=== PATIENT | male | born 1965 | race Hispanic/Latino ===

== ENCOUNTER 2025-02-19 09:33 | Inpatient (IN) | payer BC ==
--- OUTSIDE RECORDS SUMMARY | 2025-02-19 09:36 | XMS REPORT | Clinical Summary ---
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 07/01/2013 Active tadalafil (CIALIS) 5 mg tablet as needed. 02/21/2014 Active selenium 200 mcg cap capsule daily. 03/16/2015 Active amLODIPine (NORVASC) 10 mg tablet Take 10 mg by mouth daily. 11/21/2018 Active CIALIS 20 mg tablet Take 20 mg by mouth as needed. 12 01/25/2019 Active tamsulosin (FLOMAX) 0.4 mg 24 hr capsuleIndicatio ns:Benign prostatic hyperplasia with lower urinary tract symptom TAKE 1 CAPSULE BY MOUTH EVERY DAY FOR 30 DAYS 90 capsule 3 06/03/2020 Active Active Problems Problem Noted Date Diagnosed Date Prostate cancer 08/08/2018 Cancer Staging:Clinical stage from 08/08/2018:Stage I(cT1c, cN0, cM0, PSA: 3.2, Grade Group: 1) - Signed by Aldo Llamas MD on 08/08/2018 Overview (07/16/2020): Mandatory [facility] ICD-10 2020 UPDATE Decreased testosterone level (aka Low testostero ne) 10/16/2012 Overview (07/05/2018): patient was treated intermittently from 0216-9831 with various testosterone replacement preparations including injections more recently. 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 Family History Medical History Relation Name Comments -Thoracic or Lung Father -Thoracic or Lung Mother -Thoracic or Lung Sister 1 -Thoracic or Lung Sister 2 Relation Name Status Comments Father Mother Sister 1 Alive Sister 2 Alive Social History Tobacco Use Types Packs/Day Years Used Date Smoking Tobacco: Never Smokeless Tobacco: Never Alcohol Use Standard Drinks/Week Comments Yes 0 (1 standard drink = 0.6 oz pur e alcohol) 2+ per day Sex and Gender Information Value Date Recorded Sex Assigned at Not on file Legal Sex Male 4:23 PM CDT Gender Identity Not on file Sexual Orientation Not on file 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 file Not on file Not on file Obstetrics History Plan of Treatment Health Maintenance Due Date Last Done Comments Pneumococcal Vaccine: 50+ Years (1 of 1 - PCV) 015 COVID-19 Vaccine ( season) 2024 Influenza Vaccine (Season Ended) 2025 06/16/20 18 Insurance [facility] [place] Member Subscriber Plan / Payer (Ef fective 2009-Present) Name:Gabino Carlos Relation to Subscriber:Self Name:Gabino Carlos Payer ID:[id number] Type:PPO Address: [address] [place] [id number] Member Subscriber Plan / Payer ( fective 2009-Present) Name:Gabino Carlos Relation to Subscriber:Self Name:Gabino Carlos Payer ID:[id number] Type:PPO Address: [address] [place] [id number] [place] [address] [place] Care Teams Upholstery Restorer Relationship Specialty Start Date End Date Aldo Llamas MD [address] [place] [id number] [email or web address] PCP - General Urology 07/05/18
[2025-02-19] MEDS ORDERED: ONDANSETRON 4 MG/2 ML VIAL ONE ×2 (10:06→13:41)
[2025-02-19] MEDS ORDERED: MORPHINE 4 MG/ML SYR ONE ×2 (10:06→12:15)
[2025-02-19] MEDS ORDERED: NA CHLORIDE 0.9% 1,000 ML ONE (10:06)
[2025-02-19 10:35] LABS: Absolute Lymphocytes (CBC) 0.6 K/uL (0.7-4.9); Absolute Monocytes 0.6 K/uL (0.1-1.3); Absolute Neutrophil 8.1 K/uL (1.8-8.0); Basophils % 0.2 % (0-1.3); Eosinophils % 0.5 % (0-4.4); Hematocrit 43.5 % (39.6-49.0); Hemoglobin 15.1 g/dL (13.6-17.9); Lymphocytes % 6.5 % (15.3-44.8); MCH 30.8 pg (27.0-35.0); MCHC 34.6 g/dL (32.0-36.0); MCV 89.1 fL (80-100); MPV 8.6 fL (7.6-11.3); Monocytes % 6.7 % (3.3-12.3); Neutrophils % 86.1 % (41.7-73.7); Nucleated Red Blood Cells % 0.3 % (0-0); Platelets 156 thou/uL (152-406); RBC Red Blood Cell Count 4.88 M/uL (4.33-5.43); Red Cell Distribution Width 13.5 % (12.1-15.2)
[2025-02-19 10:43] LABS: Albumin 3.9 g/dL (3.4-5.0); Albumin/Globulin Ratio 1.3 (1.1-1.8); Bilirubin Total 0.5 mg/dL (0.2-1.0); Globulin 3.1 g/dL (2.3-3.5)
[2025-02-19 11:14] LABS: Specific Gravity 1.024 (1.005-1.030); Sqamous Epithelial <5 /HPF (None Seen); Urine Bacteria None Seen /HPF (<20); Urine Bilirubin NEGATIVE (Negative); Urine Blood Negative (Negative); Urine Clarity Clear (Clear); Urine Color Yellow (Yellow); Urine Glucose NEGATIVE (Negative); Urine Ketones 3+ (Negative); Urine Micro Reflex YN NO BILL MICROSCOPIC; Urine Mucus 2+ /HPF (None Seen); Urine Nitrite NEGATIVE (Negative); Urine Protein NEGATIVE (Negative); Urine RBC <5 /HPF (None Seen); Urine Urobilinogen Normal (Normal); Urine WBC <5 /HPF (<5)
--- NOTE | 2025-02-19 11:30 | RAD REPORT ---
EXAMINATION: CT Abdomen Pelvis W Contrast CLINICAL INDICATION: Male, 59 years old. ABD PAIN TECHNIQUE: CT abdomen and pelvis was performed, after the administration of IV contrast, as per [facility] protocol. Axial, sagittal and coronal reconstructions were obtained. One or more of the following dose reduction techniques were used: Automated exposure control, adjustment of the mA and k V according to patient size, and iterative reconstruction. Unless otherwise specified, incidental findings do not require dedicated imaging follow-up. COMPARISON: No prior exam. FINDINGS: LOWER CHEST: The visualized lung bases are clear. LIVER: Normal in size and contour. No focal lesion. BILIARY SYSTEM: No suspicious abnormalities. SPLEEN: Normal size. No focal lesion. PANCREAS: No mass, ductal dilation, or rody-pancreatic fluid. ADRENALS: Normal; no mass. KIDNEYS: Normal size and contour. No hydronephrosis. URINARY BLADDER: Unremarkable. GASTROINTESTINAL TRACT: No evidence of free air, significant intra-abdominal free fluid, bowel obstru ction or abscess. APPENDIX: Fluid distention throughout the appendix, measuring up to 1.7 cm in caliber, with mucosal h yperenhancement and adjacent fat stranding. No appendicolith visualized No adjacent fluid collections or free air. LYMPH NODES: No lymphadenopathy. MUSCULOSKELETAL: No acute or suspicious osseous abnormality. ADDITIONAL FINDINGS: prostatomegaly. Small left inguinal hernia containing fat. IMPRESSION: Findings of acute uncomplicated appendicitis. Other incidental findings including a small left inguinal hernia and prostatomegaly. THIS REPORT CONTAINS FINDINGS THAT MAY BE CRITICAL TO PATIENT CARE. The findings were verbally commun icated via telephone to Efrain Rodriguez on 02/19/2025 11:27 AM.
[2025-02-19] MEDS ORDERED: NA CHLORIDE 0.9% 100 ML ONE (11:53)
[2025-02-19] MEDS ORDERED: PIPERACIL/TAZO 3.375 GM VIAL IV ONE (11:53)
--- NOTE | 2025-02-19 12:08 | EDPHYS ---
Physician Documentation [facility] Name: Gabino Carlos Age: 59 yrs Sex: Male : 1965 Arrival Date: 02/19/2025 Time: 09:33 Bed 4 Private MD: ED Physician Efrain Rodriguez HPI: 02/19 10:36 This 59 yrs old Male presents to ER via Ambulatory with complaints of rt Abdominal Pain. 10:36 Patient presents to the ED for generalized abdominal pain starting at about 5 AM, took rt Gaviscon did not relieve. Denies nausea, vomiting, diarrhea. Denies other acute complaints at this time, symptoms are moderate in severity, no other aggravating alleviating factors.. Historical: - PMHx: 09:58 Hypothyroidism; Hypertensive disorder; jj7 - PSHx: 09:58 Tonsillectomy; Thyroidectomy; DEVIATED SEPTUM; jj7 - Immunization history:: Adult Immunizations unknown. - Infectious Disease History:: Denies. - Family history:: not pertinent. ROS: 10:36 Constitutional: Negative for fever, chills, and weight loss, Cardiovascular: Negative rt for chest pain, palpitations, and edema, Respiratory: Negative for shortness of breath, cough, wheezing, and pleuritic chest pain, MS/Extremity: Negative for injury and deformity, Skin: Negative for injury, rash, and discoloration, Neuro: Negative for headache, weakness, numbness, tingling, and seizure, 10:36 Abdomen/GI: Positive for abdominal pain, Negative for nausea, vomiting, and diarrhea, Exam: 10:36 Constitutional: This is a well developed, well nourished patient who is awake, alert, rt and in no acute distress. Head/Face: Normocephalic, atraumatic. Chest/axilla: Normal chest wall appearance and motion. Nontender with no deformity. No lesions are appreciated. Cardiovascular: Regular rate and rhythm with a normal S1 and S2. No gallops, murmurs, or rubs. Normal PMI, no JVD. No pulse deficits. Respiratory: Lungs have equal breath sounds bilaterally, clear to auscultation and percussion. No rales, rhonchi or wheezes noted. No increased work of breathing, no retractions or nasal flaring. Skin: Warm, dry with normal turgor. Normal color with no rashes, no lesions, and no evidence of cellulitis. MS/ Extremity: Pulses equal, no cyanosis. Neurovascular intact. Full, normal range of motion. 10:36 Abdomen/GI: Mild tenderness diffusely without rebound, guarding, distention, Vital Signs: 09:33 BP 155 / 99; Pulse 59; Resp 18; Temp 98.3; Pulse Ox 99% ; Weight 129.27 kg; Height 5 jj7 ft. 10 in. ; 10:44 BP 140 / 90; Pulse 64; Resp 16; Pulse Ox 96% ; jj7 09:33 Body Mass Index 40.89 (129.27 kg, 177.8 cm) j7 MDM: 09:51 Medical Screening Exam initiated rt 12:09 Differential Diagnosis Appendicitis, bowel obstruction, cholecystitis. Data reviewed: rt vital signs, nurses notes, lab test result(s), radiologic studies. Consideration of Admission/Observation Patient was admitted/placed on observation. Management of patient was discussed with the following: Catalyst Operator Chief: Discussed with Dr. Pizarro, will evaluate patient this afternoon. I considered the following discharge prescriptions or medication management in the emergency department Medications were administered in the Emergency Department. See MAR. Independent interpretation of the following test(s) in the Emergency Department CT Scan: My interpretation is No bowel obstruction seen on my interpretation of CT scan images. Care significantly affected by the following chronic conditions: Hypertension. Counseling: I had a detailed discussion with the patient and/or guardian regarding the historical points, exam findings, and any diagnostic results supporting the discharge/admit diagnosis, lab results, radiology results, the need for further work-up and treatment in the hospital. Response to treatment: the patient's symptoms have mildly improved after treatment. 02/19 09:55 Order name: CBC with Diff rt 02/19 09:55 Order name: CMP; Complete Time: 11:16 rt 02/19 09:55 Order name: Lipase; Complete Time: 11:16 rt 02/19 09:55 Order name: UA W/ Microscopic; Complete Time: 11:16 rt 02/19 13:30 Order name: Basic Metabolic Panel EDMS 02/19 13:30 Order name: Basic Metabolic Panel EDMS 02/19 13:30 Order name: CBC with Automated Diff EDMS 02/19 13:30 Order name: CBC with Automated Diff EDMS 02/19 13:38 Order name: CBC Smear Scan EDDC 02/19 09:55 Order name: CT Abd/Pelvis - IV Contrast Only; Complete Time: 11:32 rt 02/19 13:30 Order name: CONS Physician Consult EDDC 02/19 09:55 Order name: IV Saline Lock; Complete Time: 10:18 rt 02/19 09:55 Order name: Labs collected and sent; Complete Time: 10:18 rt 02/19 12:08 Order name: NPO; Complete Time: 12:21 rt Administered Medications: 10:17 Drug: Ondansetron IVP 4 mg IVP once; over 2 minutes Route: IVP; Site: left antecubital; jj7 10:43 Follow up: Response: Marked relief of symptoms; Nausea is decreased jj7 10:17 Drug: morphine IVP or IV 4 mg IVP once over 4 mins Route: IVP; Infused Over: 4 mins; jj7 Site: left antecubital; 10:43 Follow up: Response: Marked relief of symptoms; Pain is decreased; PT SLEEPING. NO jj7 DISTRESS NOTED. EASILY AROUSED TO VERBAL STIMULI 10:17 Drug: NS 0.9% IV 1000 ml IV at 1 bolus Per protocol; to be given as a bolus over 60 jj7 minutes Route: IV; Rate: 1 bolus; Site: left antecubital; 11:30 Follow up: Response: No adverse reaction; IV Status: Completed infusion; IV Intake: ph 1000ml 12:21 Drug: Piperacillin-Tazobactam IVPB 3.375 grams IVPB once over 60 mins; (mix in NS 100 ph mL) Route: IVPB; Infused Over: 60 mins; Site: left antecubital; 13:00 Follow up: Response: No adverse reaction; IV Status: Completed infusion ph 12:21 Drug: morphine IVP or IV 4 mg IVP once over 4 mins Route: IVP; Infused Over: 4 mins; ph Site: left antecubital; 13:00 Follow up: Response: No adverse reaction; Pain is decreased ph Disposition Summary: 02/19/25 12:08 Hospitalization Ordered Notes: Hospitalization Status: Observation rt Provider: Pao Bui rt [facility] rt Condition: Stable rt Problem: new rt Symptoms: are unchanged rt Bed/Room Type: Standard rt Room Assignment: rt Diagnosis - Unspecified acute appendicitis rt Forms: - Medication Reconciliation Form rt - SBAR form rt - Leadership Thank You Letter rt Signatures: Dispatcher [employer] Susan Adams RN RN ph Luke Bautista RN RN jj7 Efrain Rodriguez MD MD rt
--- NOTE | 2025-02-19 12:08 | ER ---
Nurse's Notes [facility] Name: Gabino Carlos Age: 59 yrs Sex: Male : 1965 Arrival Date: 02/19/2025 Time: :33 Bed 4 Private MD: Diagnosis: Unspecified acute appendicitis Presentation: 02/19 09:33 Chief complaint: Patient states: GENERALIZED ABD PAIN THAT STARTED AT 5AM. DENIES jj7 N/V/D. Coronavirus screen: At this time, the client does not indicate any symptoms associated with coronavirus-19. Ebola Screen: No symptoms or risks identified at this time. Initial Sepsis Screen: Does the patient meet any 2 criteria? No. Patient's initial sepsis screen is negative. Does the patient have a suspected source of infection? No. Patient's initial sepsis screen is negative. Risk Assessment: Do you want to hurt yourself or someone else? Patient reports no desire to harm self or others. Note TOOK SOME GAVISCON THIS MORNING. Onset of symptoms was February 19, 2025 at 05:00. :33 Method Of Arrival: Ambulatory [facility] :33 Acuity: LIU 3 jj7 Triage Assessment: 09:58 General: Appears in no apparent distress. uncomfortable, Behavior is calm, cooperative, jj7 appropriate for age. Pain: Complains of pain in abdomen. GI: Reports lower abdominal pain, upper abdominal pain, Patient currently denies diarrhea, nausea, vomiting. Historical: - PMHx: 09:58 Hypothyroidism; Hypertensive disorder; jj7 - PSHx: 09:58 Tonsillectomy; Thyroidectomy; DEVIATED SEPTUM; jj7 - Immunization history:: Adult Immunizations unknown. - Infectious Disease History:: Denies. - Family history:: not pertinent. Screenin:33 [facility] ED Fall Risk Assessment (Adult) History of falling in the last 3 months, jj7 including since admission No falls in past 3 months (0 pts) Confusion or Disorientation No (0 pts) Intoxicated or Sedated No (0 pts) Impaired Gait No (0 pts) Mobility Assist Device Used No (0 pt) Altered Elimination No (0 pt) Score/Fall Risk Level 0 - 2 = Low Risk Oriented to surroundings, Maintained a safe environment, Educated pt \T\ family on fall prevention, incl call for assistance when getting out of bed, Assessed \T\ reinforced patient's understanding of fall precautions. Abuse screen: Denies threats or abuse. Nutritional screening: No deficits noted. Tuberculosis screening: No symptoms or risk factors identified. Assessment: 09:33 Reassessment: SEE TRIAGE ASSESSMENT. jj7 Vital Signs: 09:33 BP 155 / 99; Pulse 59; Resp 18; Temp 98.3; Pulse Ox 99% ; Weight 129.27 kg; Height 5 j7 ft. 10 in. ; 10:44 BP 140 / 90; Pulse 64; Resp 16; Pulse Ox 96% ; jj7 09:33 Body Mass Index 40.89 (129.27 kg, 177.8 cm) jj7 ED Course: 09:33 Arm band placed on right wrist. Patient placed in an exam room, on a stretcher. jj7 09:33 Patient has correct armband on for positive identification. Bed in low position. Call jj7 light in reach. Adult w/ patient. Provided Education on: USE OF CALL HERNÁNDEZ. 09:37 Patient arrived in ED. gl 09:38 Efrain Rodriguez MD is Attending Physician. rt 09:54 Luke Bautista RN is Primary Nurse. jj7 09:58 Triage completed. jj7 10:13 Inserted saline lock: 20 gauge in left antecubital area, using aseptic technique. Blood jj7 collected. Flushed with 10 mL NS. 10:18 CBC with Diff Sent. jj7 10:18 CMP Sent. jj7 10:18 Lipase Sent. jj7 11:10 CT Abd/Pelvis - IV Contrast Only In Process Unspecified. EDMS 12:07 Pao Bui MD is Hospitalizing Provider. rt 13:31 No provider procedures requiring assistance completed. Patient admitted, IV remains in ph place. Administered Medications: 10:17 Drug: Ondansetron IVP 4 mg IVP once; over 2 minutes Route: IVP; Site: left antecubital; jj7 10:43 Follow up: Response: Marked relief of symptoms; Nausea is decreased jj7 10:17 Drug: morphine IVP or IV 4 mg IVP once over 4 mins Route: IVP; Infused Over: 4 mins; jj7 Site: left antecubital; 10:43 Follow up: Response: Marked relief of symptoms; Pain is decreased; PT SLEEPING. NO jj7 DISTRESS NOTED. EASILY AROUSED TO VERBAL STIMULI 10:17 Drug: NS 0.9% IV 1000 ml IV at 1 bolus Per protocol; to be given as a bolus over 60 jj7 minutes Route: IV; Rate: 1 bolus; Site: left antecubital; 11:30 Follow up: Response: No adverse reaction; IV Status: Completed infusion; IV Intake: ph 1000ml 12:21 Drug: Piperacillin-Tazobactam IVPB 3.375 grams IVPB once over 60 mins; (mix in NS 100 ph mL) Route: IVPB; Infused Over: 60 mins; Site: left antecubital; 13:00 Follow up: Response: No adverse reaction; IV Status: Completed infusion ph 12:21 Drug: morphine IVP or IV 4 mg IVP once over 4 mins Route: IVP; Infused Over: 4 mins; ph Site: left antecubital; 13:00 Follow up: Response: No adverse reaction; Pain is decreased ph Medication: 09:33 VIS not applicable for this client. jj7 Intake: 11:30 IV: 1000ml; Total: 1000ml. ph Outcome: 12:08 Decision to Hospitalize by Provider. rt 13:32 Admitted to OR accompanied by nurse, via wheelchair, with chart, ph 13:32 Condition: stable 13:32 Instructed on the need for admit, 13:54 Patient left the ED. ph Signatures: Dispatcher [employer] Susan Adams RN RN ph Johnson, Juwairiyah, RN RN jjEfrain Mittal MD MD rt Hellen Snyder, Reg Reg gl
[2025-02-19] MEDS ORDERED: HYDROMORPHONE HCL 1 MG/ML INJ IV PRN (13:26)
[2025-02-19] MEDS ORDERED: MORPHINE 4 MG/ML SYR IV PRN (13:26)
[2025-02-19] MEDS ORDERED: ONDANSETRON 4 MG/2 ML VIAL IV PRN ×2 (13:26→15:07)
--- NOTE | 2025-02-19 13:36 | P.CNS ---
Date of Consult: 02/19/25 Reason for consult: Abdominal pain History of present illness: Patient is a 59-year-old gentleman who presents to the emergency room with acute onset of diffuse abdominal pain associated with nausea and heaving. Patient denies any diarrhea, constipation or blood per rectum. Patient denies any dysuria, hematuria, fever or chills. Patient denies any sore throat, runny nose, cough, headaches, dizziness or chest pain. Review of systems: Otherwise unremarkable Past medical history: Hypertension and hypothyroidism Past surgical history: Tonsillectomy, deviated septum surgery and thyroidectomy Allergies: None Social history: Patient denies smoking or drinking alcohol Family history: Noncontributory Vital signs: Stable, afebrile Physical exam: Awake, alert and oriented x 3 Head and neck exam: No masses, no JVD, throat clear and neck supple Chest: Clear Heart: S1-S2 Abdomen: Soft, nondistended, positive bowel sound, right lower quadrant tenderness with rebound but no rigidity or guarding Extremity: Neurovascular intact Neuro: Nonfocal Diagnostic data: White count is 9.2 with left shift, CT of the abdomen pelvis is consistent with acute uncomplicated appendicitis Assessment: Acute appendicitis Plan/recommendation: Admit, n.p.o., IV fluids, IV antibiotics and to the OR for laparoscopic appendectomy possible open. Patient and understand risk, benefits and alternatives and agrees to procedure. CC:
[2025-02-19 13:37] LABS: Blood Morphology Comment NOT SEEN (NOT SEEN); Platelet Estimate ADEQ; White Blood Cell Scan OK (OK)
[2025-02-19] MEDS ORDERED: ROCURONIUM 50 MG/5 ML VIAL IV ONE (13:41)
[2025-02-19] MEDS ORDERED: LIDOCAINE 2% MPF 5 ML VIAL ONE (13:41)
[2025-02-19] MEDS ORDERED: propofoL 200 MG/20 ML VIAL IV ONE (13:42)
[2025-02-19] MEDS ORDERED: MIDAZOLAM HCL 2 MG/2 ML INJ ONE (13:42)
[2025-02-19] MEDS ORDERED: FENTANYL CITR 100 MCG/2 ML ONE (13:42)
[2025-02-19] MEDS: Ringers Lactate 1,000 ML IV ONE ×2 (13:45→15:15)
[2025-02-19] MEDS: BUPIVACAINE 0.5% PF 10 ML VIAL ONE (14:30)
[2025-02-19] MEDS ORDERED: KETOROLAC 30 MG/ML INJ ONE (14:31)
[2025-02-19] MEDS ORDERED: dexAMETHasone 10 MG/ML VIAL ONE (14:31)
[2025-02-19] MEDS ORDERED: NEOSTIGMINE 1 MG/ML -10 ML VIAL ONE (14:49)
[2025-02-19] MEDS ORDERED: GLYCOPYRROLATE 0.2 MG/ML SYR ONE (14:49)
--- NOTE | 2025-02-19 14:58 | P.OP ---
Date of Service: 02/19/25 Preop diagnosis: Acute appendicitis Postop diagnosis: Same Procedure performed: Laparoscopic appendectomy Surgeon: Tommy Pizarro MD Tar Roofer: Danyell LESLIE Estimated blood loss: Minimal Specimen: Appendix Findings: As above Anesthesia: General Complications: None Drains: None Fluids and blood products: Nonapplicable Disposition: Recovery room Operative note: Patient brought to the OR and placed in supine position. General anesthesia began. Patient prepped and draped in usual sterile fashion. Marcaine 0.5% very locally. 15 blade used to make a 1 cm supraumbilical midline incision. Subcu tissue divided and fascia identified and divided. Bleeding controlled with cautery. #1 Vicryl stay suture placed. Peritoneal cavity entered with sharp and blunt dissection. 12 mm trocar placed into the peritoneal cavity under direct vision. Pneumoperitoneum established. Two 5 mm trocars placed under direct vision. 1 trocar placed in the suprapubic region and the other 1 in the left lower quadrant. Laparoscopy revealed a acutely inflamed and large appendix. The base of the appendix on the cecum and the mesoappendix clearly identified. Endo NAOMY stapling device used to divide both structures. There was no evidence of bleeding on the mesoappendix and complete coverage of the cecum was accomplished with a stapling device. The appendix was removed via Endo Catch bag. Right lower quadrant was irrigated effluent clear no evidence of bleeding or bowel injury appreciated. There is no other evidence of disease identified. All trocars removed under direct vision. Stay sutures tied to each other to reapproximate the fascial defect. Subcutaneous wound irrigated and bleeding controlled cautery. 3-0 chromic used to reapproximate subcutaneous tissue. [place] used to close skin. Sterile skin applied. Patient awakened and taken to recovery room in good general condition. CC:
--- NOTE | 2025-02-19 16:01 | P.HP ---
Patient History Date of Service: 02/19/25 History of Present Illness: 59-year-old male with a past medical history of hypothyroidism, hypertension presenting with abdominal pain that started earlier on this a.m. around 5. Patient states the pain radiates down. He has not taken any medication for relief. He denies associated symptoms include nausea. No recent surgeries or traumatic injuries. The pain gradually increased over the course of the day. He rates the pain as a 10 out of 10 Allergies cephalexin [From Keflex] Allergy (Verified 02/19/25 14:18) Hives Review of Systems General: Unremarkable Eyes: Unremarkable ENT: Unremarkable Respiratory: Unremarkable Cardiovascular: Unremarkable Gastrointestinal: Abdominal Pain Genitourinary: Unremarkable Musculoskeletal: Unremarkable Integumentary: Unremarkable Physical Examination - Vital Signs Temperature: 98.2 F Blood Pressure: 114/70 Pulse: 70 Respirations: 17 - Physical Exam General: In no apparent distress HEENT: Normocephalic Neck: Supple Respiratory: Clear to auscultation bilaterally, Normal air movement Cardiovascular: No edema, Normal pulses Capillary refill: <2 Seconds Gastrointestinal: Other (Dressings are clean dry and intact), Tenderness, Guarding Musculoskeletal: No swelling Integumentary: No rashes Neurological: Normal speech, Normal strength at 5/5 x4 extr - Studies Laboratory Data (last 24 hrs) 02/19/25 02/19/25 10:15 10:15 WBC 9.40 Hgb 15.1 Hct 43.5 Plt Count 156 Sodium 140 Potassium 4.0 BUN 11 Creatinine 0.82 Glucose 132 H Total Bilirubin 0.5 AST 13 L ALT 27 Alkaline Phosphatase 63 Lipase 53 Assessment and Plan - Plan Acute appendicitis Hypothyroidism Hypertension s/p laparoscopic appendectomy Clear liquid diet Start IV fluid Continue IV Zosyn Dr. Pizarro with general surgery following IV morphine as needed, IV Dilaudid as needed CBC and CMP in the a.m. DVT prophylaxis with Lovenox - Advance Directives Does patient have a Living Will: No Does patient have a Durable POA for Healthcare: No
[2025-02-19] MEDS ORDERED: ENOXAPARIN 40 MG/0.4 ML SQ SCH (17:00)
[2025-02-19 17:20] VITALS: BMI 40.8
[2025-02-19] MEDS: HYDROCODONE/APAP 7.5/325 MG TAB PO PRN (17:38)
[2025-02-19] MEDS: PIPER TAZO 3.375 GM in NA CHLORIDE 0.9% 100 ML IV SCH (17:39)
[2025-02-19] MEDS: NA CHLORIDE 0.9% 1,000 ML IV SCH (17:39)
[2025-02-19] MEDS: HYDROMORPHONE HCL 1 MG/ML INJ IV PRN (18:29)
[2025-02-19 18:33] LABS: Absolute Lymphocytes (CBC) 0.3 K/uL (0.7-4.9); Absolute Monocytes 1.1 K/uL (0.1-1.3); Absolute Neutrophil 13.3 K/uL (1.8-8.0); Basophils % 0.3 % (0-1.3); Hematocrit 39.5 % (39.6-49.0); Hemoglobin 13.8 g/dL (13.6-17.9); MCH 31.7 pg (27.0-35.0); MCV 90.4 fL (80-100); MPV 8.6 fL (7.6-11.3); Monocytes % 7.3 % (3.3-12.3); Neutrophils % 90.4 % (41.7-73.7); Platelets 168 thou/uL (152-406); RBC Red Blood Cell Count 4.37 M/uL (4.33-5.43); Red Cell Distribution Width 13.6 % (12.1-15.2)
[2025-02-19 19:55] LABS: Band Neutrophils 29 % (0-1); Differential Total Cells Count 100; Lymphocytes 4 % (15-42); Monocytes 4 % (0-10); Segmented Neutrophils 63 % (40-80)
[2025-02-19 19:56] LABS: Blood Morphology Comment NOT SEEN (NOT SEEN); Platelet Estimate ADEQ
[2025-02-19] MEDS: THYROID 30 MG TAB PO SCH ×2 (20:26→20:27)
[2025-02-20] MEDS: ACETAMINOPHEN 325 MG TABLET PO PRN (00:53)
[2025-02-20 07:25] LABS: Absolute Lymphocytes (CBC) 0.8 K/uL (0.7-4.9); Absolute Monocytes 1.6 K/uL (0.1-1.3); Absolute Neutrophil 9.6 K/uL (1.8-8.0); Basophils % 0.1 % (0-1.3); Hematocrit 30.9 % (39.6-49.0); Lymphocytes % 6.3 % (15.3-44.8); MCH 31.6 pg (27.0-35.0); MCHC 35.4 g/dL (32.0-36.0); MCV 89.3 fL (80-100); MPV 9.1 fL (7.6-11.3); Monocytes % 13.5 % (3.3-12.3); Neutrophils % 80.1 % (41.7-73.7); Platelets 148 thou/uL (152-406); RBC Red Blood Cell Count 3.46 M/uL (4.33-5.43); Red Cell Distribution Width 13.5 % (12.1-15.2)
[2025-02-20 07:45] VITALS: TEMP 98
[2025-02-20] MEDS: NA CHLORIDE 0.9% 1,000 ML IV ONE (08:38)
[2025-02-20 11:55] LABS: Absolute Lymphocytes (CBC) 0.9 K/uL (0.7-4.9); Absolute Monocytes 1.4 K/uL (0.1-1.3); Absolute Neutrophil 7.6 K/uL (1.8-8.0); Basophils % 0.3 % (0-1.3); Eosinophils % 0.1 % (0-4.4); Hematocrit 30.3 % (39.6-49.0); Hemoglobin 10.8 g/dL (13.6-17.9); Lymphocytes % 9.3 % (15.3-44.8); MCH 31.8 pg (27.0-35.0); MCHC 35.6 g/dL (32.0-36.0); MCV 89.4 fL (80-100); MPV 8.8 fL (7.6-11.3); Neutrophils % 76.3 % (41.7-73.7); Platelets 141 thou/uL (152-406); RBC Red Blood Cell Count 3.39 M/uL (4.33-5.43); Red Cell Distribution Width 13.4 % (12.1-15.2)
[2025-02-20 12:07] VITALS: O2SAT 94
[2025-02-20 13:00] VITALS: BP 117/71
--- NOTE | 2025-02-20 13:02 | P.DS ---
Admission Date: 02/19/25 Discharge Date: 02/20/25 Disposition: DC HOME/HOME HEALTH CARE Discharge Condition: GOOD Hospital Course: Discharge diagnosis: 1. Acute appendicitis s/p laparoscopic appendectomy 2. Hypothyroidism: Continue home medications 3. Hypertension: Continue home medications 4. Leukocytosis: Improved. 5. Anemia and thrombocytopenia: Probably secondary to acute illness and hemodilution, need follow-up with PCP. 6. Enlarged prostate on CT scan: Follow-up with PCP. Hospital course: 59-year-old patient admitted with acute appendicitis, had laparoscopic appendectomy, when I see the patient this morning, he is tolerating diet, pain is reasonably controlled, I discussed with the surgical team, Dr. Pizarro recommending another week of antibiotics, his hemoglobin and platelets dropped a little bit, I think this is hemodilution and acute illness, repeat labs are stable, otherwise no other acute issues going on so I am planning to discharge him to go home and follow-up with PCP and surgery as an outpatient. Subjective: No chest pain or shortness of breath. No nausea or vomiting. Abdominal pain controlled. No obvious bleeding. Looks comfortable in the bed. Objective: General appearance: Alert and comfortable CVS: Normal S1 and S2 Lungs: Clear to auscultation bilaterally Abdomen: Soft, bowel sounds present, no tenderness Extremities: No lower extremity edema Vital Signs/Physical Exam: Temp Pulse Resp BP Pulse Ox 98.0 F 74 16 98/56 L 94 02/20/25 07:44 02/20/25 07:44 02/20/25 07:44 02/20/25 07:44 02/20/25 07:44 Laboratory Data at Discharge: WBC 9.90 thou/uL (4.3-10.9) 02/20/25 11:43 Hgb 10.8 g/dL (13.6-17.9) L 02/20/25 11:43 Hct 30.3 % (39.6-49.0) L 02/20/25 11:43 Plt Count 141 thou/uL (152-406) L 02/20/25 11:43 Sodium 140 mEq/L (136-145) 02/19/25 10:15 Potassium 4.0 mEq/L (3.5-5.1) 02/19/25 10:15 BUN 11 mg/dL (7-18) 02/19/25 10:15 Creatinine 0.82 mg/dL (0.70-1.30) 02/19/25 10:15 Glucose 132 mg/dL (74-106) H 02/19/25 10:15 Total Bilirubin 0.5 mg/dL (0.2-1.0) 02/19/25 10:15 AST 13 U/L (15-37) L 02/19/25 10:15 ALT 27 U/L (16-61) 02/19/25 10:15 Alkaline Phosphatase 63 U/L (45-117) 02/19/25 10:15 Lipase 53 U/L (13-75) 02/19/25 10:15 Home Medications: Amlodipine [Norvasc*] 5 mg PO DAILY 02/19/25 Olmesartan Medoxomil [Benicar] 40 mg PO DAILY 02/19/25 Thyroid Tab [[place] Thyroid*] 90 mg PO DAILY 02/19/25 Thyroid Tab [[place] Thyroid*] 120 mg PO DAILY 02/19/25 Tirzepatide [Zepbound] 7.5 mg SQ Q7D 02/19/25 Amox/Clavulanate [Augmentin 875-125 Tab] 875 mg PO BID #14 tab 02/20/25 Hydrocodone 5/APAP 325 [[place] 5/325] 1 tab PO TID PRN #10 tab 02/20/25 New Medications: Amox/Clavulanate [Augmentin 875-125 Tab] 875 mg PO BID #14 tab Hydrocodone 5/APAP 325 [[place] 5/325] 1 tab PO TID PRN #10 tab PRN Reason: Pain Diet: AHA Activity: Ad christianne Followup: Nigel Luna MD [Primary Care Provider] - 1 Week (f/u in 1 week with CBC and CMP) Tommy Pizarro MD [ACTIVE - CAN ADMIT] - (f/u in 1-2 weeks)
[2025-02-20] MEDS ORDERED: ENOXAPARIN 40 MG/0.4 ML SQ SCH (17:00)
--- NOTE | 2025-02-20 18:54 | PN ---
Date of Progress Note: 02/20/2025 Subjective: The patient is awake, alert. No complaint. Tolerating diet. Objective: Vital Signs: Stable, afebrile. Abdomen: Soft, nondistended, nontender. Dressing is clean, dry, intact. No further evidence of ble eding noted. Laboratory Data: H and H dropped a little bit from 13 to 11. Assessment: Status post lap appy. Recommendations: We will repeat the H and H around noon. If stable, the patient is cleared for disc harge from Surgery standpoint probably delusional drop in hemoglobin as platelets and white count als o went down. The patient clinically is doing very well. Discharge instructions given. Follow up in my office 1 week. /MODL Voice ID: [id number] Report ID: [id number]
== END 2025-02-20 15:24 | disposition home health service (06) | DRG 399 ==
LOC: ER 09:33 → ERHOLD 13:26 → 2ND 14:08
PROVIDERS: ADMIT Family Medicine; ATTEND Hospitalist
PROC: 0DTJ4ZZ Resection of Appendix, Percutaneous Endoscopic Approach (ICD-10-PCS; principal; 2025-02-19 13:30)
DX: K35.80 Unspecified acute appendicitis (principal); E03.9 Hypothyroidism, unspecified; I10 Essential (primary) hypertension; D64.9 Anemia, unspecified; D69.6 Thrombocytopenia, unspecified; N40.0 Benign prostatic hyperplasia without lower urinary tract symptoms; Z79.899 Other long term (current) drug therapy
CPT/HCPCS: 36415; 74177; 80053; 81001; 83690; 85025; 88304; 94010; 96361; 96365; 96375; 99285; J1100; J1171; J2003; J2250; J2405; J2543; J2704; J2710; J3010; J7030; J7120; Q9967